=== PATIENT | female | born 1970 ===

== ENCOUNTER 2017-11-25 13:42 | Emergency (ER) | payer OTHER ==
[2017-11-25 13:47] VITALS: BP 132/83; PULSE 87; TEMP 99; O2SAT 99
--- NOTE | 2017-11-25 15:02 | ED PDOC ---
HPI: General Adult Time Seen by Provider: 11/25/17 13:53 Chief Complaint (Nursing): Female Genitourinary Chief Complaint (Provider): Concern for UTI History Per: Patient History/Exam Limitations: no limitations Onset/Duration Of Symptoms: Days (x 1) Current Symptoms Are (Timing): Still Present Additional Complaint(s): 47 year old female with a history of HTN presents to the ED expressing concern for urinary infection. Patient feels she "has not been urinating enough" but denies any difficulty when she does urinate. Patient denies any dysuria, frequency, urgency, or hematuria. Patient also reports no history of UTI in the past. Her LMP was 20 days ago. Patient denies fever, back pain, flank pain, cough, rash, abdominal pain, nausea/vomiting, chest pain, SOB, and vaginal bleeding/discharge. Patient denies any history of renal colic or renal disease. PMD: Dr. Pineda Miranda MD Past Medical History Reviewed: Historical Data, Nursing Documentation, Vital Signs Vital Signs: Last Vital Signs Temp 99 F 11/25/17 13:47 Pulse 87 11/25/17 13:47 Resp BP 132/83 11/25/17 13:47 Pulse Ox 99 11/25/17 16:04 - Medical History PMH: Anxiety, HTN Other PMH: aortic insufficiency - Surgical History Surgical History: (x 3) Other surgeries: tubal ligation - Family History Family History: States: Unknown Family Hx - Social History Current smoker - smoking cessation education provided: No Alcohol: None Drugs: Denies - Allergies Allergies/Adverse Reactions: Allergies Allergy/AdvReac Type Severity Reaction Status Date / Time No Known Allergies Allergy Verified 11/25/17 13:50 Review of Systems ROS Statement: Except As Marked, All Systems Reviewed And Found Negative Physical Exam - Reviewed Nursing Documentation Reviewed: Yes Vital Signs Reviewed: Yes - Physical Exam Appears: Positive for: Well, Non-toxic, No Acute Distress Head Exam: Positive for: ATRAUMATIC, NORMOCEPHALIC Skin: Positive for: Warm, Dry Eye Exam: Positive for: EOMI, PERRL Neck: Positive for: Painless ROM, Supple Cardiovascular/Chest: Positive for: Regular Rate, Rhythm. Negative for: Murmur Respiratory: Positive for: Normal Breath Sounds. Negative for: Decreased Breath Sounds, Accessory Muscle Use, Respiratory Distress Gastrointestinal/Abdominal: Positive for: Bowel Sounds (active x 4), Soft. Negative for: Tenderness, Mass, Distended, Guarding, Rebound Back: Positive for: Normal Inspection. Negative for: L CVA Tenderness, R CVA Tenderness Extremity: Positive for: Normal ROM. Negative for: Pedal Edema, Calf Tenderness , Deformity Neurologic/Psych: Positive for: Alert, Oriented (x 3), Gait (steady in ED). Negative for: Motor/Sensory Deficits - ECG O2 Sat by Pulse Oximetry: 99 (RA) Pulse Ox Interpretation: Normal Medical Decision Making Medical Decision Making: Time: 13:47 Impression: concern for UTI Initial Plan: --Urine dip --Urine preg Of note, patient was able to provide urine on demand in ED. Urine dip --results are negative (-) glucose, bilirubin, ketones, protein, nitrates and leukocytes. Positive for trace blood. --Urine cx ordered --Urinalysis ordered 1535 U/A reviewed, trace blood. On re-evaluation, patient reports improvement of symptoms, denies any N/V, flank pain, back pain, or dysuria. Patient able to urinate twice while in ED. On exam, patient remains AAOx3, in no acute distress. On exam, neck is supple, lungs CTA, cardiac RRR, abdomen is soft and non-tender, neuro exam shows no focal findings. Diagnostic results d/w the patient in great detail. Dx of concern for UTI, hematuria d/w the patient. Based on history, exam and diagnostic results plan will be for discharge and outpatient follow up. Patient advised to have repeat U/A in 1-2 weeks for evaluation of hematuria. Advised to follow up with primary care physician/urology in 1-2 days without fail. Return to the emergency room at any time for any new or worsening symptoms. Patient states she fully agrees with and understands discharge instructions. States that she agrees with the plan and disposition. Verbalized and repeated discharge instructions and plan. I have given the patient opportunity to ask any additional questions. ----- Scribe Attestation: Documented by Sruthi Jiménez, acting as a scribe for Purnima Cesar PA-C Provider Scribe Attestation: All medical record entries made by the Scribe were at my direction and personally dictated by me. I have reviewed the chart and agree that the record accurately reflects my personal performance of the history, physical exam, medical decision making, and the department course for this patient. I have also personally directed, reviewed, and agree with the discharge instructions and disposition. Disposition - Clinical Impression Clinical Impression: Concern about urinary tract disease without diagnosis - Patient ED Disposition Is Patient to be Admitted: No Counseled Patient/Family Regarding: Studies Performed, Diagnosis, Need For Followup - Disposition Referrals: Niko Leon MD [Medical Doctor] - Disposition: Routine/Home Disposition Time: 15:39 Condition: STABLE Instructions: General (DC), Blood in the Urine (Hematuria) in Adults Forms: [employer] (Latvian), [employer] (Vietnamese) Print Language: [place] - POA Present On Arrival: None Results - Lab Results Lab Results: 11/25/17 14:54 Urine Color Straw Urine Clarity Slighty-cloudy Urine pH 7.0 Ur Specific [place] 1.008 Urine Protein Negative Urine Glucose (UA) Neg Urine Ketones Negative Urine Blood Small Urine Nitrate Negative Urine Bilirubin Negative Urine Urobilinogen 0.2-1.0 Ur Leukocyte Esterase Neg Urine RBC (Auto) 1 Urine Microscopic WBC 1 Ur Squamous Epith Cells 1 Urine Bacteria Occ H
[2017-11-25 15:14] LABS: SQUAMOUS EPITHIAL 1 /hpf (0-5); URINE BACTERIA OCC (<OCC); URINE BILIRUBIN NEGATIVE (NEGATIVE); URINE BLOOD SMALL (NEGATIVE); URINE CLARITY SLIGHTY-CLOUDY (Clear); URINE COLOR STRAW (YELLOW); URINE GLUCOSE (UA) NEG (Normal); URINE LEUKOCYTE ESTERASE NEG Leu/uL (Negative); URINE PROTEIN NEGATIVE (NEGATIVE); URINE UROBILINOGEN 0.2-1.0 mg/dL (0.2-1.0)
== END 2017-11-25 16:43 | disposition home or self-care (01) ==
LOC: H.ER 13:42
DX: N39.0 Urinary tract infection, site not specified (principal); F41.9 Anxiety disorder, unspecified; I10 Essential (primary) hypertension; I35.1 Nonrheumatic aortic (valve) insufficiency